=== PATIENT | male | born 1990 | race Caucasian/White ===

== ENCOUNTER 2017-09-13 09:54 | Emergency (ER) | payer SELFPAY ==
[2017-09-13 10:00] VITALS: BP 133/84; BMI 21.2
[2017-09-13] MEDS ORDERED: XYLOCAINE 1 % (PLAIN) IM ONE (10:27)
[2017-09-13] MEDS ORDERED: XYLOCAINE 1 % (PLAIN) ONE (10:28)
[2017-09-13] MEDS ORDERED: ADACEL TDaP IM ONE ×2 (10:29→10:32)
[2017-09-13] MEDS ORDERED: BACITRACIN ZINC ONE (10:59)
--- NOTE | 2017-09-13 11:07 | DR.BITE ---
HPI - Time Seen Time seen: 11:05 - PCP Primary Care Physician: MONICA - HPI Comment HPI Comment: HISTORY BELOW. - Complaint/Symptoms Chief Complaint Doctor Comments: DOG BITE WITH PUNCTURE WUOND, ABRASION AND LAC. TD N OT UTD Chief Complaint:: PT C/O OF A NEIGHBORS DOG THAT RAN ON HIS PORCH AND TRIED TO BITE HIM AND HE PUT HIS ARM OUT AND IT BIT HIM ON THE ARM.. - Nurses notes reviewed Nurses Notes Review: Yes - Source History Provided: Patient - Mode of Arrival Mode of Arrival: Ambulatory - Duration Duration: Constant Duration: Hours - Location Location: Right, Arm - Timing Onset of Chief Complaint: 09/13/17 ago: Hours - Context Caused by: Dog Symptoms: Pain Immunization Status of Animal: Unknown ([employer]IGATING. DOG BELONG TO PATIENTS NEIGHBOR.) Tetanus Immunization Current: No - Severity Pain: Moderate Puritis Severity: None SOB Severity: Moderate - Associated signs and symptoms Associated signs and symptoms: Redness PMH - PMH Past Medical History: No Past Surgical History: No - Family History History of Family Medical Conditions: Yes Family Medical History: Cancer, [place] - Social History Does patient currently use any type of tobacco product: No Have you used tobacco products in the last 12 months: No Type of Tobacco Use: Cigarettes Does any household member use tobacco: No Do you use any recreational Drugs:: No Lives With: Family Lives Where: Home - infectious screening In the last 2 months have you had wt loss of >10#?: NO Have you had fever, night sweats or hemotysis?: No Have you traveled outside the country in the last 6 months?: No Isolation: Standard ROS - Review of Systems Constitutional: No Symptoms Reported Eyes: No Symptoms Reported ENTM: No Symptoms Reported Respiratoy: No Symptoms Reported Cardiovascular: No Symptoms Reported Gastrointestinal/Abdominal: No Symptoms Reported Genitourinary: No Symptoms Reported Neurological: No Symptoms Reported Musculoskeletal: No Symptoms Reported Integumentary: Wound (PUNTURE , LAC AND ABRASION WOUND.) Hematologic/Lymphatic: No Symptoms Reported Endocrine: No Symptoms Reported PE - Vital Signs Vital Signs: Temp Pulse Resp BP Pulse Ox 09/13/17 09:55 98.6 F 89 20 133/84 100 - Constitutional Limitations: No Limitations General Appearance: Alert - Head Head Exam: Normal Inspection - Eyes Eye exam: Normal Appearance - ENT ENT Exam: Normal External Ear Exam - Neck Neck Exam: Trachea Midline - Chest Chest Inspection: Symmetric Chest Wall Rise - Respiratory Respiratory Exam: Normal Lung Sounds Bilat Respiratory Exam: Bilateral Clear to Auscultation - Cardiovascular Cardiovascular Exam: Regular Rate, Normal Rhythm, Normal Heart Sounds - Abdominal Exam Abdominal Exam: Normal Inspection - Extremities Extremities Exam: Tenderness (RT FOREARM LAC AND ABRASION.) - Back Back Exam: Normal Inspection - Neurologic Neurological Exam: Alert, Oriented X3 - Skin Type of Lesion: Laceration, Abrasion Distribution: RUE Through to: Skin Distal Function: Normal MDM - Differential Diagnosis Differential Diagnosis: Laceration Other Differential Diagnosis: DOG BITE. Course - Treatment Treatment: SEE ORDERS. - Education/Counseling Education/Counseling: Patient, Education Educated On: Treatment, Diagnosis, Needs for Follow Up Procedures - Laceration/Wound Repair Right Arm Wound Length (cm): 3 Wound's Depth, Shape: Irregular Wound Explored: clean Anesthesia: 1% Lidocaine Wound Debrided: moderate Wound Repaired With: Steri-strips (TO 1CM LAC RT FOREAR.) Suture Size/Type: 4:0 Number of Sutures: 4 Layer Closure?: No Sterile Dressing Applied?: Yes Splint Applied?: No Sling Applied?: No - Diagnosis Discharge Problem: Dog bite Qualifiers: Encounter type: initial encounter Qualified Code(s): W54.0XXA - Bitten by dog, initial encounter Laceration of right forearm Qualifiers: Encounter type: initial encounter Qualified Code(s): S51.811A - Laceration without foreign body of right forearm, initial encounter - Discharge Plan Disposition: 01 HOME, SELF-CARE Condition: Stable Prescriptions: Acetaminophen with Codeine [Tylenol/Codeine #3 300-30 mg] 1 tab PO Q6H PRN #15 tab PRN Reason: Pain Amoxicillin & Pot Clavulanate [AUGMENTIN TAB 875 mg/125 mg *] 1 tab PO BID #20 tab Ibuprofen [MOTRIN TAB 600 MG *] 600 mg PO TID PRN #20 tab PRN Reason: Pain/Inflammation - Follow ups/Referrals Follow ups/Referrals: NFD,None [Primary Care Provider] - 3 days - Instructions Instructions: Animal Bite, Laceration Care, Adult, [id number] Additional Instructions: RETURN TO ED IF WORSE. SUTURE OUT IN 10 DAYS.
== END 2017-09-13 11:20 | disposition home or self-care (01) ==
LOC: ER 10:08
PROC: 0XQ8XZZ Repair Right Upper Arm, External Approach (ICD-10-PCS; principal; 2017-09-13)
DX: S51.811A Laceration without foreign body of right forearm, initial encounter (principal); W54.0XXA Bitten by dog, initial encounter
CPT/HCPCS: 90471; 99282; J2001